=== PATIENT | male | born 1940 | race Caucasian/White ===

== ENCOUNTER 2022-05-09 03:06 | Day surgery (SDC) | payer MEDICARE, SELFPAY ==
[2022-04-24 09:22] VITALS: BMI 25.2
--- NOTE | 2022-05-08 19:38 | PM.HPGS ---
History of Present Illness History of Present Illness Consent: Risks, benefits, and alternatives have been discussed and questions answered. Patient agrees to proceed with procedure. Chief complaint: positive cologuard Narrative: Rufino Rodriguez is a 81 year old male referred for colon cancer screening Review of Systems Review of Systems: All systems reviewed & are unremarkable except as noted in HPI and below PMFSH Past Medical History Medical History Deficiency of other specified B group vitamins Encounter for immunization Essential (primary) hypertension Glaucoma H/O: gout Insomnia Mild persistent asthma in adult without complication Mixed hyperlipidemia Obstructive sleep apnea syndrome Prediabetes Pulmonary hypertension Rosacea Family History Family History Other Diabetes mellitus Family history of tuberculosis Social History Social History Smoking status: Never smoker Second hand tobacco smoke exposure: No Smoking end date: 05/05/1968 Alcohol intake: current Drinks per week: 14 Alcohol use details: Beer Substance use: never Substance use type: does not use Lack of Transportation: No Lack of Food: Never True Current Housing: I Have Housing Concerned About Future Housing: No Difficulty Paying Gas/Electric Bills: No Difficulty Paying for Meds: No Currently Unemployed: No Education: High School Diploma/GED Difficulty w/ Childcare or Family Care: No Living arrangements: with family Gender identity (if verbalized by the patient): Male Sexual Orientation (if Verbalized by the Patient): Straight or Heterosexual Spiritual care concerns: No Agree to blood products: Yes Meds Home Medications and Allergies Home Medications Medication Instructions Recorded Confirmed Type fluticasone furoate 200 1 inhalation inhalation DAILY #60 01/13/20 05/09/22 Rx mcg-vilanterol 25 mcg/dose ea inhalation powder (Breo Ellipta) bimatoprost 0.01 % eye drops 1 drp EACH EYE QPM 03/01/21 04/24/22 History (Dony) mecobalamin (vitamin B12) 1,000 1,000 mcg sublingual DAILY 03/01/21 04/24/22 History mcg disintegrating tablet,sublingual atorvastatin 40 mg tablet 40 mg PO DAILY #90 tabs 08/27/21 04/24/22 Rx tamsulosin 0.4 mg capsule 0.4 mg PO DAILY 08/30/21 04/24/22 History losartan 50 mg tablet See Rx Instructions .Route 12/13/21 04/24/22 Rx .COMPLEX #90 tabs allopurinol 300 mg tablet 300 mg PO DAILY #90 tabs 04/02/22 04/24/22 Rx brimonidine 0.2 %-timolol 0.5 % 1 drp EACH EYE DAILY 04/24/22 04/24/22 History eye drops fluticasone furoate 100 1 inh inhalation DAILY 04/24/22 04/24/22 History mcg-vilanterol 25 mcg/dose inhalation powder (Breo Ellipta) omega-3 fatty acids-vitamin E 1 cap PO DAILY 04/24/22 04/24/22 History 1,000 mg capsule Allergies Allergy/AdvReac Type Severity Reaction Status Date / Time No Known Allergies Allergy Verified 05/09/22 06:22 Exam Const: General: alert Orientation/consciousness: patient oriented x3 Resp: Auscultation: clear to auscultation bilaterally Cardio: Rhythm: regular rhythm GI: GI Palp: Yes Soft to palpation and No Tenderness to palpation present (GI) Neuro: General: patient oriented x3 Assessment and Plan Assessment and plan (1) Colon cancer screening: Code(s): Z12.11 - Encounter for screening for malignant neoplasm of colon Status: Acute Assessment and Plan: Colonoscopy with possible biopsy or polypectomy or cautery or injection of substances.
[2022-05-09 06:26] VITALS: BP 148/74; PULSE 92; RESP 20; TEMP 36.1; O2SAT 100
[2022-05-09] MEDS: LACTATED RINGERS 1,000 ML 150 ML IV CONT (06:42)
--- NOTE | 2022-05-09 07:24 | WPDANESEPPF ---
Anes - Initial Pre Proc Eval Procedure: Operation Date: 05/09/22 07:30 Proposed Procedures p Colonoscopy - Allen Catalan MD Date/Time: 05/09/22 07:24 Surgeon: Allen Catalan MD Pre Op Diagnosis: positive cologuard Patient Data Age: 81 Gender: M Height: 1.7 m Weight: 75.1 kg Last Vital Signs Temp 97 F L 05/09/22 06:26 Pulse 92 05/09/22 06:26 Resp 20 05/09/22 06:26 BP 148/74 H 05/09/22 06:26 Pulse Ox 100 05/09/22 06:26 O2 Del Method Room Air 05/09/22 06:26 Allergies Allergy/AdvReac Type Severity Reaction Status Date / Time No Known Allergies Allergy Verified 05/09/22 06:22 Home Medications Medication Instructions Recorded Confirmed Type fluticasone furoate 200 1 inhalation inhalation DAILY #60 01/13/20 05/09/22 Rx mcg-vilanterol 25 mcg/dose ea inhalation powder (Breo Ellipta) bimatoprost 0.01 % eye drops 1 drp EACH EYE QPM 03/01/21 04/24/22 History (Dony) mecobalamin (vitamin B12) 1,000 1,000 mcg sublingual DAILY 03/01/21 04/24/22 History mcg disintegrating tablet,sublingual atorvastatin 40 mg tablet 40 mg PO DAILY #90 tabs 08/27/21 04/24/22 Rx tamsulosin 0.4 mg capsule 0.4 mg PO DAILY 08/30/21 04/24/22 History losartan 50 mg tablet See Rx Instructions .Route 12/13/21 04/24/22 Rx .COMPLEX #90 tabs allopurinol 300 mg tablet 300 mg PO DAILY #90 tabs 04/02/22 04/24/22 Rx brimonidine 0.2 %-timolol 0.5 % 1 drp EACH EYE DAILY 04/24/22 04/24/22 History eye drops fluticasone furoate 100 1 inh inhalation DAILY 04/24/22 04/24/22 History mcg-vilanterol 25 mcg/dose inhalation powder (Breo Ellipta) omega-3 fatty acids-vitamin E 1 cap PO DAILY 04/24/22 04/24/22 History 1,000 mg capsule Patient hx anesthesia problems: none Family hx anesthesia problems: none Results Review: All pre-operative results and documents have been reviewed as part of the pre-operative evaluation. [facility] Past Medical History Medical History Deficiency of other specified B group vitamins Encounter for immunization Essential (primary) hypertension Glaucoma H/O: gout Insomnia Mild persistent asthma in adult without complication Mixed hyperlipidemia Obstructive sleep apnea syndrome Prediabetes Pulmonary hypertension Rosacea Family History Family History Other Diabetes mellitus Family history of tuberculosis Social History Social History Smoking status: Never smoker Second hand tobacco smoke exposure: No Smoking end date: 05/05/1968 Alcohol intake: current Drinks per week: 14 Alcohol use details: Beer Substance use: never Substance use type: does not use Lack of Transportation: No Lack of Food: Never True Current Housing: I Have Housing Concerned About Future Housing: No Difficulty Paying Gas/Electric Bills: No Difficulty Paying for Meds: No Currently Unemployed: No Education: High School Diploma/GED Difficulty w/ Childcare or Family Care: No Living arrangements: with family Gender identity (if verbalized by the patient): Male Sexual Orientation (if Verbalized by the Patient): Straight or Heterosexual Spiritual care concerns: No Agree to blood products: Yes Anes - Eval Final PreProcedure Day of Procedure 05/09/22 07:24 Patient weight: obese Heart: regular rate and rhythm Lungs: clear to auscultation Airway: Mallampati scale class III Neurological: alert and oriented Last oral intake: >/= 8 hours ASA classification: III Emergent: no Anesthetic plan: proceed Anesthesia type and monitoring: general GIVS and standard monitoring Results Review: All pre-operative results and documents have been reviewed as part of the pre-operative evaluation. Informed Consent: The patient's anesthetic plan and its attendant risks and benefits were discussed
[2022-05-09 07:45] VITALS: BP 116/68; PULSE 82; RESP 17; O2SAT 96
[2022-05-09 07:55] VITALS: BP 129/73; PULSE 78; RESP 25; O2SAT 100
[2022-05-09 08:05] VITALS: BP 132/74; PULSE 70; RESP 17; O2SAT 100
== END 2022-05-09 08:17 | disposition home or self-care (01) ==
PROVIDERS: PCP Family Medicine; Visit Provider Internal Medicine Gastroenterology
PROC: 0DJD8ZZ Inspection of Lower Intestinal Tract, Via Natural or Artificial Opening Endoscopic (ICD-10-PCS; CPT 45378; principal; 2022-05-09 07:30)
DX: Z12.11 Encounter for screening for malignant neoplasm of colon (principal); K57.30 Diverticulosis of large intestine without perforation or abscess without bleeding; D12.0 Benign neoplasm of cecum; D12.5 Benign neoplasm of sigmoid colon; R19.5 Other fecal abnormalities; I10 Essential (primary) hypertension; E78.2 Mixed hyperlipidemia; J45.30 Mild persistent asthma, uncomplicated; H40.9 Unspecified glaucoma; M10.9 Gout, unspecified; G47.33 Obstructive sleep apnea (adult) (pediatric); I27.20 Pulmonary hypertension, unspecified; R73.03 Prediabetes
CPT/HCPCS: 45380; 45385; 88305; J2704; J7120